=== PATIENT | female | born 1955 | race Caucasian/White ===

== ENCOUNTER 2019-03-29 15:28 | Outpatient (CLI) | payer MEDICARE, MEDICAID ==
[~2019-03-29 15:28] MED LIST: ALBU6.7H8 PO; ALPR0.257 PO; AMIO200T42 PO; ASPI325T17 PO; ATEN100T PO; ATOR40TA78 PO; DOCU-131 PO; FURO-92 PO; LEVO75TA PO; NITR0.4T28 SL; OXYC5CAP2 PO; POTA20TA14 PO; POTASSIUM PO; WARF2.5T32 PO-COUM
== END 2019-03-29 23:59 | disposition home or self-care (01) ==
LOC: CVU 15:28
PROVIDERS: ATTEND Internal Medicine Cardiovascular Disease
DX: I35.0 Nonrheumatic aortic (valve) stenosis (principal); Z87.891 Personal history of nicotine dependence; I10 Essential (primary) hypertension; Z95.4 Presence of other heart-valve replacement
CPT/HCPCS: 93306